=== PATIENT | male | born 1975 | race Caucasian/White ===

== ENCOUNTER 2024-05-18 06:16 | Outpatient (CLI) | payer MEDICAID ==
[2024-05-18] MEDS ORDERED: LIDOcaine 1% 30ml preserv. free vial ONE (06:41)
[2024-05-18] MEDS ORDERED: GADOTERATE MEGLUMINE 7.5 MMOL/15 ML VIAL IV ONE (06:41)
[2024-05-18] MEDS ORDERED: iohexol 300 MG/1 ML 50ml polymer ONE (06:41)
[2024-05-18] MEDS ORDERED: LIDOcaine 1%/PF 5ML 10 MG/ML VIAL ONE (06:41)
== END 2024-05-18 23:59 | disposition home or self-care (01) ==
LOC: RAD 06:16
PROVIDERS: ATTEND Specialist
DX: M25.511 Pain in right shoulder (principal); M89.311 Hypertrophy of bone, right shoulder; M75.101 Unspecified rotator cuff tear or rupture of right shoulder, not specified as traumatic
CPT/HCPCS: 23350; 73222; 77002; A9575; J2003; J3490; Q9967

== ENCOUNTER 2024-06-02 06:19 | Outpatient (CLI) | payer MEDICAID ==
[2024-06-02] MEDS ORDERED: iohexol 300 MG/1 ML 50ml polymer ONE (06:33)
[2024-06-02] MEDS ORDERED: LIDOcaine 1%/PF 5ML 10 MG/ML VIAL ONE (06:33)
[2024-06-02] MEDS ORDERED: LIDOcaine 1% 30ml preserv. free vial ONE (06:33)
[2024-06-02] MEDS ORDERED: GADOTERATE MEGLUMINE 7.5 MMOL/15 ML VIAL IV ONE (06:34)
== END 2024-06-02 23:59 | disposition home or self-care (01) ==
LOC: RAD 06:19
PROVIDERS: ATTEND Specialist
DX: M25.511 Pain in right shoulder (principal); S43.431A Superior glenoid labrum lesion of right shoulder, initial encounter; S43.432A Superior glenoid labrum lesion of left shoulder, initial encounter; X58.XXXA Exposure to other specified factors, initial encounter; Y93.89 Activity, other specified; Y92.89 Other specified places as the place of occurrence of the external cause; Y99.8 Other external cause status; Z87.891 Personal history of nicotine dependence
CPT/HCPCS: 23350; 73222; 77002; A9575; J2003; J3490; Q9967